=== PATIENT | male | born 1945 | race Caucasian/White ===

== ENCOUNTER 2021-12-19 12:49 | Emergency (ER) | payer BC ==
[~2021-12-19] VITALS: Ht 177.8 cm; Wt 78.0 kg
[2021-12-19] MEDS ORDERED: TETANUS, DIPHTHERIA, PERTUSSIS VAC/PF 0.5ML (>10YR OLD) IM ONE (13:15)
[2021-12-19] MEDS ORDERED: AMOX-424 MT (13:21)
[2021-12-19 13:41] VITALS: BP 127/86
== END 2021-12-19 13:45 | disposition home or self-care (01) ==
LOC: ER 12:49
DX: S71.152A Open bite, left thigh, initial encounter (principal); W54.0XXA Bitten by dog, initial encounter; Y93.89 Activity, other specified; Y92.89 Other specified places as the place of occurrence of the external cause; Y99.8 Other external cause status; I10 Essential (primary) hypertension
CPT/HCPCS: 90471; 90715; 99283

== ENCOUNTER 2024-03-19 10:24 | Emergency (ER) | payer MEDICAID, BC ==
[~2024-03-19] VITALS: Ht 177.8 cm; Wt 96.0 kg
[~2024-03-19 10:24] MED LIST: AMOX-424 MT
[2024-03-19 10:29] VITALS: O2SAT 99
[2024-03-19] MEDS ORDERED: KETOROLAC 60MG/2ML VIAL IM ONE (13:00)
[2024-03-19] MEDS ORDERED: IBUP-2029 MT (13:03)
[2024-03-19] MEDS: KETOROLAC 30MG/ML VIAL IM NR (14:00)
[2024-03-19 14:03] VITALS: BP 187/91; PULSE 60; RESP 18; TEMP 97.9
== END 2024-03-19 14:16 | disposition home or self-care (01) ==
LOC: ER 10:24
DX: M25.572 Pain in left ankle and joints of left foot (principal); I10 Essential (primary) hypertension
CPT/HCPCS: 99283; 73630; 96372; J1885